=== PATIENT | male | born 1980 | race Caucasian/White ===

== ENCOUNTER 2017-04-18 13:30 | Emergency (ER) | payer BC, OTHER ==
[~2017-04-18] VITALS: Ht 172.7 cm; Wt 81.7 kg
--- NOTE | ~2017-04-18 | EKG ---
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 Hand: CHRISTOPHER DORADO : 1980 Requested By: Merary Lee Order Number: [id number] MD: Irwin Vines Measurements Intervals [place] Rate: 107 P: 33 AL: 177 QRS: 64 QRSD: 78 T: 0 QT: 326 QTc: 435 Interpretive Statements Sinus tachycardia Otherwise no significant abnormality Compared to ECG 03/18/2015 11:25:12 No significant changes Electronically Signed On 04-21-2017 8:27:06 CDT by Irwin Vines [email or web address] <ELECTRONICALLY SIGNED> By: Irwin Vines MD, [facility] 04/21/17 0827 [id number] Irwin Vines MD, FACC /EPI
[~2017-04-18 13:30] MED LIST: BYSTOLIC10 MG PO; XANAX 0.25 MG0.25 MG PO
[2017-04-18 13:49] VITALS: BP 120/80
== END 2017-04-18 14:33 | disposition home or self-care (01) ==
LOC: ER 13:30
DX: F41.9 Anxiety disorder, unspecified (principal); R00.0 Tachycardia, unspecified; F10.99 Alcohol use, unspecified with unspecified alcohol-induced disorder